=== PATIENT | male | born 1955 | race Caucasian/White ===

== ENCOUNTER 2017-05-18 11:49 | Emergency (ER) | payer OTHER ==
[~2017-05-18] VITALS: Wt 89.0 kg
--- NOTE | 2017-05-18 14:38 | RADRPT ---
PROCEDURE: XR Chest. CLINICAL INDICATION: cough TECHNIQUE: Single frontal view of the chest was obtained COMPARISON: None FINDINGS: Atherosclerotic changes are seen in the aortic arch. The cardiac silhouette is unremarkable. There is a 5 mm nodule in the inferior left upper lobe. Correlation with previous films would be use ful. The lungs are otherwise clear. There is no pleural effusion or pneumothorax. The bones and soft tissue show no acute change. IMPRESSION: 1. 5 mm nodule in the inferior left upper lobe. Correlation with previous films would be useful. If there are no previous films available for comparison, a repeat study in 3 months is recommended. 2. Otherwise, no significant abnormalities are identified. RPTAT:AAJJ Physician Dominique Date Time Electronically viewed and signed by Kishan Bullard Physician on 05/18/2017 14:38 CRISTINA/
[2017-05-18] MEDS ORDERED: AZIT250T94 PO (14:52)
[2017-05-18] MEDS ORDERED: PROM6.25 PO (14:55)
[2017-05-18] MEDS ORDERED: CARB15DR50 BOTH EARS (14:56)
--- NOTE | 2017-05-18 15:04 | ERD ---
ER Documentation Chief Complaint Chief Complaint COUGH X 2 WEEKS, HEADACHE, NO FEVER HPI This is a 61-year-old male presents to the ER with a cough for the last week and a half. Patient states that his cough is severe, worse at night and productive. Patient states that he has yellow to green sputum. He tried over- the-counter medications however they have not worked. Patient denies any fevers or chills. He also complains of headache and sore throat. Headache is described as throbbing in quality and has been intermittent over the last week and a half. He has not had any head trauma. Patient denies any chest pain or shortness of breath. ROS 12 point review of systems was done, all negative except per HPI. Medications Home Meds Active Scripts Carbamide Peroxide* (Debrox*) 6.5% - 15 Ml Drops, 10 DROP BOTH EARS BID for 5 Days, BOTTLE Prov:SHYANNE MCKEON 05/18/17 Promethazine Hcl* (Promethazine Hcl* Syrup) 6.25 Mg/5 Ml Syrup, 12.5 MG PO Q6H Y for COUGH for 5 Days, ML Prov:SHYANNE MCKEON 05/18/17 Azithromycin* (Zithromax*) 250 Mg Tablet, 250 MG PO .ZPACK DIRECTED, #6 TAB TAKE 500 MG (2 TABS) THE FIRST DAY THEN 250 MG (1 TAB) DAYS 2-5 Prov:SHYANNE MCKEON 05/18/17 Allergies Allergies: Coded Allergies: Penicillins (Verified Allergy, Unknown, swelling, 02/06/14) PMhx/Soc History of Surgery: No Anesthesia Reaction: No Hx Neurological Disorder: No Hx Respiratory Disorders: No Hx Cardiac Disorders: No Hx Psychiatric Problems: No Hx Miscellaneous Medical Probl: Yes (GERD) Hx Alcohol Use: Yes (OCCASIONAL) Hx Substance Use: No Hx Tobacco Use: No Smoking Status: Never smoker Physical Exam Vitals Vital Signs Date Time Temp Pulse Resp B/P Pulse Ox O2 Delivery O2 Flow Rate FiO2 05/18/17 11:52 98.3 67 17 135/80 98 Physical Exam GENERAL: The patient is well-developed, well-nourished, in no acute distress. NECK: Cervical spine is non tender with no step off. Supple, no nuchal rigidity HEENT: Atraumatic. Pupils equal, round and reactive to light. Extraocular muscles are grossly intact. Conjunctivae pink, no discharge. Bilateral tympanic membranes are clear with no evidence of erythema, effusion or dulling of the light reflex. Tonsilar erythema with no exudates or uvular deviation. Clear rhinorrhea. RESPIRATORY: Clear to auscultation bilaterally. There are no rales, wheezes or rhonchi. HEART: Regular rate and rhythm. No murmurs, clicks, rubs or gallops. EXTREMITIES: No clubbing or cyanosis. Full range of motion. Grossly neurovascularly intact. NEUROLOGIC: Alert and oriented. Cranial nerves II through XII are intact. SKIN: There is no rash. The skin is warm and dry. Procedures/MDM Differential diagnosis includes but is not limited to; Viral URI, allergic rhinitis, bronchitis, pertussis,pneumonia. Treated for possible bacterial bronchitis, as he has had his symptoms for over a week now and is worsening. Clinical suspicion for pneumonia is low as patient appears well, is not hypoxic or in any respiratory distress. Patient is afebrile and has not had any history of fevers. He is stable for outpatient follow-up. I did discuss with him the 5 cm nodule that was seen on x-ray and advised him to follow-up in 3 months with repeat x-ray. Plan was discussed with patient they understand and agree. Patient needs to follow up with PCP in 1-2 days or return to ER sooner if symptoms worsen. Departure Diagnosis: Primary Impression: Bronchitis Condition: Stable Patient Instructions: What Is Bronchitis? Additional Instructions: Call your primary care doctor TOMORROW for an appointment during the next 1-2 days.See the doctor sooner or return here if your condition worsens before your appointment time. SHYANNE MCKEON May 18, 2017 15:04
== END 2017-05-18 15:25 | disposition home or self-care (01) ==
LOC: FTE 11:49
DX: J20.9 Acute bronchitis, unspecified (principal)
CPT/HCPCS: 71010; Z7502